=== PATIENT | female | born 1950 | race Caucasian/White ===

== ENCOUNTER 2018-11-07 22:53 | Observation (INO) | payer MEDICARE, OTHER ==
[2018-11-07] MEDS ORDERED: Ondansetron PF 4 MG/2 ML Vial ONE (23:05)
[2018-11-07] MEDS ORDERED: Morphine 4 MG/ML VIAL ONE ×2 (23:05→23:49)
--- NOTE | 2018-11-07 23:22 | RAD ---
XR Tib Fib Lt Leg 2 View History: Trauma Comparison: None. Findings: Fracture dislocation of the ankle with posterior lateral displacement. Medial, lateral, and posterior malleolus fractures. Impression: Fracture dislocation of the left ankle.
--- NOTE | 2018-11-07 23:23 | RAD ---
XR Knee Lt 4 View STANDARD History: Trauma Comparison: None. Findings: The knee is intact. No significant joint effusion. No acute fracture or malalignment. Impression: Intact knee.
--- NOTE | 2018-11-07 23:23 | RAD ---
XR Ankle Lt 3 View STANDARD History: Trauma Comparison: None. Findings: Fracture dislocation of the left ankle posterior lateral displacement of the talus. Medial, lateral, and posterior malleolar fractures. Impression: Fracture dislocation of the left ankle.
[2018-11-08] MEDS ORDERED: Ketamine 50 MG/ML (10ML VIAL) ONE (00:16)
[2018-11-08 00:28] LABS: #Eosinphils 0.1 thou/uL (0.0-0.7); #Lymphocytes 1.2 thou/uL (1.20-3.40); #Monocytes 0.9 thou/uL (0.11-0.59); #Neutrophils 8.8 thou/uL (1.40-6.50); %Basophils 0.1 % (0.0-1.0); %Lymphocytes 11.2 % (21.0-51.0); %Monocytes 7.8 % (0.0-10.0); %Neutrophils 79.9 % (42.0-75.0); Mean Corpuscular HGB CONC 34.2 g/dL (32.0-36.0); Mean Corpuscular Hemoglobin 31.2 pg (27.0-31.0); Mean Corpuscular Volume 91.2 fL (78.0-98.0); Mean Platelet Volume 9.5 fL (7.4-10.4); Platelet Count 213 thou/uL (130-400); Red Blood Cell (RBC) Count 4.81 mill/uL (4.20-5.40); White Blood Cell (WBC) Count 10.9 thou/uL (4.8-10.8)
[2018-11-08 00:42] LABS: ALT (SGPT) 171 U/L (8-55); AST (SGOT) 141 U/L (5-34); Albumin 4.6 g/dL (3.4-4.8); Alkaline Phosphatase 96 U/L (40-150); Anion Gap 18 mmol/L (10-20); BUN (Urea Nitrogen) 19 mg/dL (9.8-20.1); Bilirubin, Total 1.3 mg/dL (0.2-1.2); Calc. Creatinine Clearance 0 mL/min (70-130); Carbon Dioxide 22 mmol/L (23-31); Chloride 105 mmol/L (98-107); Estimated GFR-MDRD 50; Globulin 3.1 g/dL (2.4-3.5); Glucose 154 mg/dL (80-115); Potassium 4.6 mmol/L (3.5-5.1); Protein, Total 7.7 g/dL (6.0-8.3); Sodium 140 mmol/L (136-145)
[2018-11-08 00:50] LABS: Calcium 12.7 mg/dL (7.8-10.44)
[2018-11-08] MEDS ORDERED: Morphine 2 MG/ML SYRINGE ONE (01:35)
[2018-11-08] MEDS ORDERED: Ibuprofen 800 MG TAB ONE (01:47)
[2018-11-08] MEDS ORDERED: traMADol HCl 50 MG TAB PO PRN (01:58)
[2018-11-08] MEDS ORDERED: Ondansetron PF 4 MG/2 ML Vial IVP PRN (01:59)
[2018-11-08] MEDS ORDERED: Dextrose 50% Abboject 50 ML SYRINGE SLOW IVP PRN (01:59)
[2018-11-08] MEDS ORDERED: Ondansetron ODT 4 MG TAB PO PRN (01:59)
[2018-11-08] MEDS ORDERED: Morphine 2 MG/ML SYRINGE SLOW IVP PRN (01:59)
[2018-11-08] MEDS ORDERED: Dextrose 5% in Water 1,000 ML IV PRN (01:59)
[2018-11-08] MEDS ORDERED: hydrALAZINE 20 MG/ML VIAL SLOW IVP PRN (01:59)
[2018-11-08] MEDS ORDERED: Cyclobenzaprine 10 MG TAB PO PRN (02:06)
[2018-11-08 02:18] LABS: Magnesium 2.2 mg/dL (1.6-2.6); Phosphorus 4.2 mg/dL (2.3-4.7)
[2018-11-08] MEDS: Sodium Chloride 0.9% 1,000 ML IV SCH ×2 (02:54→13:07)
--- NOTE | 2018-11-08 03:06 | HP ---
This is Selena Ragland NP dictating a report for Patrice Vera MD. CONSULTANTS: Orthopedic Surgery, Dr. Koenig. HISTORY OF PRESENT ILLNESS: This is a 68-year-old lady who presented to the emergency room with complaints of left ankle pain and deformity. The patient states that approximately 9:30 this evening that she was attempting to saddle a horse when the horse got spooked and stepped on her left ankle. The patient denies any loss of consciousness. The patient denies any other injuries. The patient was knocked down by the horse. The patient was given fentanyl 300 mcg IV prior to her arrival by EMS. The patient was evaluated in the emergency room and found to have an isolated left trimalleolar fracture and talar dislocation. The patient received ketamine in the emergency room and left ankle was reduced successfully and splinted. She was given Zofran and morphine in the emergency room for pain. PAST MEDICAL HISTORY: Denied any past medical history. PAST SURGICAL HISTORY: Fractured arm repair as a child. ALLERGIES: NO KNOWN DRUG ALLERGIES. HOME MEDICATIONS: The patient denies any home prescription medications. The patient does report taking an herbal supplement. SOCIAL HISTORY: Denies alcohol use, denies history of smoking, denies illicit drug use. FAMILY HISTORY: Dad of a stroke at the age of 62 and mother of colon cancer at age of 78. REVIEW OF SYSTEMS: A 10-point review of systems is negative unless otherwise indicated in the above HPI. PHYSICAL EXAMINATION: VITAL SIGNS: Blood pressure 136/91, pulse 76, respirations 18, temperature 97.9, SpO2 95% on room air, pulse 76. GENERAL: The patient is awake, alert, in moderate distress due to left ankle pain. HEENT: Head is atraumatic and normocephalic. NECK: Supple, full range of motion without pain, pupils equal, round, and reactive at 3 mm, mucous membranes dry. RESPIRATORY: Bilateral chest rise, symmetrical, no respiratory distress, clear and equal bilateral. CARDIOVASCULAR: Regular rate and rhythm. No pedal edema. GI: Abdomen is soft, nontender, nondistended, active bowel sounds. EXTREMITIES: Left lower extremity splinted, unable to assess pedal pulse due to splint in place, cap refill less than 2 seconds, normal sensation to toes. Moves all extremities, no other obvious injuries. NEUROLOGIC: The patient is awake, alert, oriented to person, place, time, and event. Speech is normal, cranial nerves intact, no focal deficits. LABORATORY DATA: WBC 10.9, RBC 4.81, hemoglobin 15.0, hematocrit 43.8, platelets 213. Sodium 140, potassium 4.6, chloride 105, carbon dioxide 22, anion gap 18, BUN 19, creatinine 1.10, estimated GFR 50, glucose 154, calcium 12.7, total bilirubin 1.3, AST 141, ALT 171, alkaline phos 96, albumin 4.6. DIAGNOSTICS: 1. Left knee x-ray. Impression: Intact knee. No acute fracture. 2. Tibia fibula x-ray, left. Impression: Fracture dislocation of left ankle. 3. Left ankle x-ray. Impression: Fracture dislocation of the left ankle posterior lateral displacement of the talus. Medial, lateral, and posterior malleolar fractures. IMPRESSION: 1. Status post injury by horse. 2. Fracture dislocation of the left ankle, status post reduction and splint. 3. Acute traumatic pain. 4. Hypercalcemia. PLAN: 1. We will admit patient to surgical ortho floor. 2. We will place the patient n.p.o. except for p.o. medications. 3. We will place the patient on a pain regimen. 4. We will check additional labs and repeat BMP in the morning to confirm calcium level. 5. We will place a PT/OT consult postop. 6. Dr. Koenig's plans to take the patient to the OR in the morning. The plan was discussed with the patient, who agrees. The plan will be discussed with the attending trauma surgeon after this dictation. Job ID: [id number]
[2018-11-08 03:41] VITALS: BMI 28.3
[2018-11-08 04:29] LABS: Anion Gap 17 mmol/L (10-20); BUN (Urea Nitrogen) 18 mg/dL (9.8-20.1); Calc. Creatinine Clearance 73 mL/min (70-130); Calcium 11.1 mg/dL (7.8-10.44); Carbon Dioxide 22 mmol/L (23-31); Chloride 106 mmol/L (98-107); Estimated GFR-MDRD 65; Glucose 133 mg/dL (80-115); Potassium 4.6 mmol/L (3.5-5.1); Sodium 140 mmol/L (136-145)
[2018-11-08] MEDS: Ibuprofen 800 MG TAB PO SCH ×2 (06:26→13:07)
[2018-11-08] MEDS: Acetaminophen 500 MG TAB PO SCH ×3 (06:26→18:00)
[2018-11-08] MEDS: traMADol HCl 50 MG TAB PO SCH ×3 (06:27→18:00)
--- NOTE | 2018-11-08 07:28 | RAD ---
EXAM: XR Ankle Lt 2 View PROVIDED CLINICAL HISTORY: Post reduction COMPARISON: 11/07/2018 FINDINGS: Interval reduction of previously described tibiotalar dislocation and trimalleolar fracture, with sub sequent improved alignment. Interval posterior splint placement. IMPRESSION: As above.
[2018-11-08 08:05] VITALS: TEMP 97.9
[2018-11-08] MEDS ORDERED: CEFAZOLIN 2 GM in Premix Bag 1 BAG IVPB SCH (08:30)
[2018-11-08] MEDS ORDERED: Polyethylene Glycol 3350 17 GM Packet PO SCH (09:00)
[2018-11-08] MEDS ORDERED: Senokot S 8.6-50 MG TAB PO SCH (09:00)
--- NOTE | 2018-11-08 09:01 | CON ---
DATE OF CONSULTATION: CHIEF COMPLAINT: Left ankle pain. HISTORY OF PRESENT ILLNESS: Ms. Quiñones is a 68-year-old female, who was working with her horses. She slipped and fell under a horse. She was stepped on. She was able to get herself out of the way of further injury. She injured her ankle. Her ankle without a place. She was taken to the emergency department. She was found to have an ankle fracture dislocation on the left. She was reduced and splinted. She has been admitted to the hospital. She is currently resting comfortably. She has received pain medication. PAST MEDICAL HISTORY: Negative. PAST SURGICAL HISTORY: Previous arm surgery as a child from fracture. ALLERGIES: NO KNOWN DRUG ALLERGIES. MEDICATIONS: None. SOCIAL HISTORY: The patient denies tobacco, alcohol, or drug use. FAMILY MEDICAL HISTORY: Noncontributory. REVIEW OF SYSTEMS: Positive for left ankle pain. Otherwise, negative 10-point review of systems. PHYSICAL EXAMINATION: VITAL SIGNS: Temperature is 97.9, pulse is 75, respiratory rate 14, oxygen saturation 98%, and blood pressure is 129/77. GENERAL: She is alert, lying supine, in no apparent distress. RESPIRATORY: Breathing comfortably. ABDOMEN: Soft, nontender, and nondistended. MUSCULOSKELETAL: The patient's left lower extremity splint is in place. She has 2 second capillary refill of the toes. She is able to flex and extend her toes. Foot is warm and well perfused. Upper extremities are atraumatic. IMAGES: X-rays of the left ankle demonstrate a trimalleolar fracture with dislocation. This has been reduced. She did have initial wide displacement of her fractures. IMPRESSION: Left trimalleolar fracture dislocation of the ankle. PLAN: The patient will need to go to the operating room today for open reduction and internal fixation of the ankle fracture. We will restore anatomic alignment and hopefully allow healing. She will remain n.p.o. She will have antibiotics. She will have DVT prophylaxis. Risks have been reviewed, which include posttraumatic arthritis, hardware-related pain, neurovascular injury, nonunion, malunion, DVT, and others. Job ID: [id number]
[2018-11-08] MEDS ORDERED: Fentanyl 100 MCG/2 ML VIAL ONE (09:48)
[2018-11-08] MEDS ORDERED: Bupivacaine HCl 0.5%/Epinephrine 1:200,000/PF 30 ml Vial ONE (10:29)
--- NOTE | 2018-11-08 11:28 | RAD ---
EXAM: XR Ankle Lt 2 View PROVIDED CLINICAL HISTORY: ORIF COMPARISON: 11/08/2018 FINDINGS: Frontal and lateral spot fluoroscopic images of the left ankle demonstrate interval internal fixation of bimalleolar fractures. IMPRESSION: As above.
[2018-11-08] MEDS ORDERED: HYDROmorphone 2 MG/ML VIAL SLOW IVP PRN (11:49)
[2018-11-08] MEDS ORDERED: Ondansetron HCl/PF 4 MG/2 ML Vial IVP PRN (11:49)
[2018-11-08] MEDS ORDERED: Meperidine HCl/PF 25 MG/ML VIAL SLOW IVP PRN (11:49)
[2018-11-08] MEDS ORDERED: Ketorolac Tromethamine 30 MG/ML VIAL IVP PRN (11:49)
[2018-11-08] MEDS ORDERED: PACU-Morphine 4MG/ML VIAL SLOW IVP PRN (11:49)
[2018-11-08] MEDS ORDERED: Morphine Sulfate 2 MG/ML SYRINGE SLOW IVP PRN (11:49)
[2018-11-08] MEDS ORDERED: Promethazine HCl 25 MG/ML VIAL SLOW IVP PRN (11:49)
[2018-11-08] MEDS ORDERED: Promethazine HCl 25 MG/ML VIAL IM PRN (11:49)
[2018-11-08] MEDS ORDERED: Ondansetron PF 4 MG/2 ML Vial ONE (13:49)
[2018-11-08] MEDS ORDERED: Lidocaine 1% PF 5 ML VIAL ONE (13:49)
[2018-11-08] MEDS ORDERED: PROPOFOL 200 MG/20 ML VIAL ONE (13:49)
[2018-11-08] MEDS ORDERED: Dexamethasone 20 MG/5 ML VIAL ONE (13:49)
[2018-11-08 16:36] VITALS: BP 148/73
--- NOTE | 2018-11-08 17:44 | OP ---
DATE OF PROCEDURE: 11/08/2018 OPERATION: Open reduction and internal fixation of left ankle fracture dislocation, bimalleolar. PREOPERATIVE DIAGNOSIS: Left bimalleolar ankle fracture dislocation. POSTOPERATIVE DIAGNOSIS: Left bimalleolar ankle fracture dislocation. COMPLICATIONS: None. ESTIMATED BLOOD LOSS: 100 mL. SAW FILER: Sharon Valdez. IMPLANT: Synthes 1/3 tubular plate x6 hole and two 4.0 partially-threaded cancellous screws. INDICATIONS: Ms. Quiñones is a 68-year-old female who was injured by a horse. She fractured her left ankle. She had an unstable bimalleolar ankle fracture with dislocation. She was indicated for open reduction and internal fixation of the fracture to restore anatomic alignment and promote healing. Risks have been reviewed in detail. She elected to proceed with the operation. DESCRIPTION OF OPERATION: Ms. Quiñones was identified in the preoperative holding area. Her correct extremity was marked. She was carried to the operating room. She was positioned supine. General anesthesia was induced. A multidisciplinary time-out was performed. The left lower extremity was prepped and draped in sterile fashion. At this point, we began the procedure with lateral approach to the fibula. We dissected down through the subcutaneous tissues to the bony level. The soft tissues had been avulsed off the fibula. We irrigated the hematoma. At this point, we pulled traction on the fibula and restored its anatomic alignment to the fibular shaft. We held this with a K-wire. There was a high degree of comminution at the fracture site. We placed a lag screw through a free butterfly fragment over the anterior fibula. We then placed a 6-hole 1/3 tubular plate with 5 screws. We took x-ray images confirming that placement was appropriate. At this point, we moved to the medial side. We incised over the medial malleolus. We dissected down through the subcutaneous tissues to the fracture. The fracture edges were cleared. At this point, we made a small drill hole proximally and placed our pointed reduction clamp. We held this with a K-wire. We then placed our two 4.0 partially-threaded screws. These affixed the medial side well. We obtained a stress view x-ray, which was negative. Final images were taken. We thoroughly irrigated. We then closed with 2-0 Vicryl suture followed by 3-0 nylon suture. Sterile dressing and a splint were placed. The patient was taken to the recovery room in good condition without complication. Job ID: [id number]
--- NOTE | 2018-11-10 10:42 | DIS ---
DATE OF ADMISSION: 11/08/2018 DATE OF DISCHARGE: 11/08/2018 PROCEDURES: 1. Left knee x-ray; impression, intact knee, no acute fracture. 2. Tibia-fibula x-ray, left; impression, fracture dislocation of left ankle. 3. Left ankle x-ray; impression, fracture dislocation of the left ankle with posterolateral displacement of the talus. Medial, lateral, and posterior malleolar fractures. PRIMARY DIAGNOSIS: Left trimalleolar fracture, status post injury from horse. DISCHARGE MEDICATIONS: 1. Aspirin 81 mg p.o. b.i.d. 2. [place] 5/325 one p.o. q.4 hours as needed for pain #[address] Koenig. DISCONTINUED MEDICATIONS: None. HISTORY OF PRESENT ILLNESS AND HOSPITAL COURSE: This is a 68-year-old lady, who presented to the emergency room with complaints of left ankle pain and deformity. The patient was attempting to saddle a horse when the horse got spooked, knocked the patient down, and then stepped on her ankle. The patient denies any other injuries. The patient denies any loss of consciousness or hitting her head. The patient was taken to the operating room for repair by Dr. Koenig. The patient did well postop and was deemed stable for discharge home with crutches. The patient's physical exam was unremarkable including cardiopulmonary and GI exam. The patient is tolerating a regular diet. The plan was discussed with the attending surgeon and Dr. Koenig for discharge. The patient agrees with the plan. DISCHARGE INSTRUCTIONS: 1. Location: Home. 2. Diet: Regular diet. 3. Activity: Nonweightbearing, left leg. 4. Followup: Follow up with Dr. Koenig in 10 days. Follow up with primary care physician as needed. 5. No need to follow up with Trauma, Dr. Sarmiento. Please call if you have any questions. Job ID: [id number]
== END 2018-11-08 18:30 | disposition home or self-care (01) ==
LOC: ERS 22:53 → SURG A 11-08 00:45
PROVIDERS: ADMIT Specialist; ATTEND Orthopaedic Surgery
PROC: 0QSK04Z Reposition Left Fibula with Internal Fixation Device, Open Approach (ICD-10-PCS; principal; 2018-11-07)
PROC: 0QSH04Z Reposition Left Tibia with Internal Fixation Device, Open Approach (ICD-10-PCS; 2018-11-07)
DX: S82.852A Displaced trimalleolar fracture of left lower leg, initial encounter for closed fracture (principal); E83.52 Hypercalcemia; G89.11 Acute pain due to trauma; W55.19XA Other contact with horse, initial encounter
CPT/HCPCS: 27814; 27818; 73564; 73590; 73600; 73610; 76000; 80048; 80053; 82306; 83735; 83970; 84100; 85025; 96361; 96374; 96375; 96376 ×2; 97116; 97139; 99152; 99291; 99292; C1713 ×4; G0378; 36415; G0390; J0670; J0690; J1100; J2001; J2270; J2405; J2704; J3010